=== PATIENT | male | born 1995 | race Caucasian/White ===

== ENCOUNTER 2020-03-04 13:22 | Emergency (ER) | payer BC, OTHER ==
[~2020-03-04] VITALS: Ht 193 cm; Wt 119.7 kg
[2020-03-04] MEDS ORDERED: IBUPROFEN 800 MG TAB PO ONE ×2 (17:15)
[2020-03-04 17:22] VITALS: BP 130/91
== END 2020-03-04 17:33 | disposition home or self-care (01) ==
LOC: ER 13:22
DX: S61.305A Unspecified open wound of left ring finger with damage to nail, initial encounter (principal); X58.XXXA Exposure to other specified factors, initial encounter; Y93.89 Activity, other specified; Y92.89 Other specified places as the place of occurrence of the external cause; Y99.8 Other external cause status
CPT/HCPCS: 11730